=== PATIENT | female | born 1965 | race Caucasian/White ===

== ENCOUNTER → 2017-05-13 | Outpatient (CLI) | payer OTHER, SELFPAY ==
[~2017-05-13] MED LIST: AMOCLA875 PO; BISA5EC PO; Bactrim Ds Tab1 EACH PO; EPIN.3I IM; ESOM20 PO; ETOD200 PO; FAMO20 PO; FEXO180 PO; FLUC150A PO; GABA400 PO; HYDACE5 PO; HYDHCL25 PO; HYDPAM50 PO; IBUHYD PO; LOSA50 PO; LOSARTAN-HCTZ1 EACH PO; MAGCIT300 PO; METCAR500 PO; METPRE4DP PO; MONT10T PO; Norco 5-325 Ta1 EACH PO; OXYC5 PO; PRED20 PO; PROACE100 PO; Pyridium100 MG PO; Tobrex5 ML BOTHEYES; VITAMINS; Zofran Odt4 MG SL; [UNRECOGNIZED DRUG - REMARK] PO
== END ==
LOC: LAB EV 14:48
DX: R50.9 Fever, unspecified (principal)
CPT/HCPCS: 87070

== ENCOUNTER 2017-11-25 05:08 | Emergency (ER) | payer OTHER, SELFPAY ==
[~2017-11-25] VITALS: Ht 160 cm; Wt 117.9 kg
[~2017-11-25 05:08] MED LIST changes: -Bactrim Ds Tab1 EACH PO; -LOSA50 PO; -LOSARTAN-HCTZ1 EACH PO; -Norco 5-325 Ta1 EACH PO; -Pyridium100 MG PO; -Zofran Odt4 MG SL
[2017-11-25] MEDS ORDERED: LOSARTAN-HCTZ1 EACH PO (05:29)
[2017-11-25] MEDS ORDERED: LOSA50 PO (05:29)
[2017-11-25 05:56] LABS: Source, Urine Clean Catch
[2017-11-25 06:09] LABS: Blood, Urine 2+ (Neg); Glucose Qualitative, Urine Neg (Neg); Ketones, Urine Neg (Neg); Leukocyte Esterase, Urine 2+ (Neg); Nitrite, Urine Neg (Neg); Protein, Urine 1+ (Neg); Urobilinogen, Urine NORM (Normal)
[2017-11-25 06:13] LABS: Appearance, Urine Clear (Clear); Bilirubin, Urine 1+ (Neg); Color, Urine Yellow (P-Yellow)
[2017-11-25 06:16] LABS: Squamous Epithelial Cells Many /hpf (Few)
[2017-11-25 06:18] LABS: Bacteria Few /hpf; Red Blood Cells, Urine 0-2 /hpf (0-2); Uric Acid Crystals Few /hpf
[2017-11-25 06:31] LABS: BASOPHILS ABSOLUTE AUTO 0.04 K/mm3 (0.00-0.23); BASOPHILS PERCENT AUTO 0 % (0-2); EOSINOPHILS ABSOLUTE AUTO 0.11 K/mm3 (0.00-0.68); EOSINOPHILS PERCENT AUTO 1 % (0-6); Hematocrit 42.1 % (33.0-51.0); Hemoglobin 13.9 g/dL (11.5-16.0); IMMATURE GRAN ABSOLUTE AUTO 0.02 K/mm3 (0.00-0.10); IMMATURE GRAN PERCENT AUTO 0 % (0-1); LYMPHOCYTES ABSOLUTE AUTO 1.94 K/mm3 (0.84-5.20); LYMPHOCYTES PERCENT AUTO 20 % (21-46); MONOCYTES ABSOLUTE AUTO 0.78 K/mm3 (0.16-1.47); MONOCYTES PERCENT AUTO 8 % (4-13); Mean Corpuscular HGB 29.3 pg (26.0-34.0); Mean Corpuscular Volume 89 fL (80-100); Mean Platelet Volume 10.3 fL (9.1-12.4); NEUTROPHILS ABSOLUTE AUTO 6.68 K/mm3 (1.96-9.15); NEUTROPHILS PERCENT AUTO 70 % (41-73); Platelet Count 254 K/mm3 (150-400); RDW Coefficient Variation 12.7 % (11.7-14.2); RDW Standard Deviation 41.9 fL (35.1-46.3); Red Blood Cell Count 4.74 M/mm3 (3.80-5.20); White Blood Cell Count 9.57 K/mm3 (4.00-11.30)
[2017-11-25 06:40] LABS: Alanine Aminotransfer (ALT/SGP 72 U/L (12-78); Albumin, Blood 3.9 g/dL (3.4-5.0); Albumin/Globulin Ratio 1.1 (0.8-1.8); Alk Phos 88 U/L (50-136); Anion Gap 11 mmol/L (6-16); Aspartate Aminotrans (AST/SGOT 32 U/L (12-37); Bilirubin, Total 0.3 mg/dL (0.1-1.0); Blood Urea Nitrogen 17 mg/dL (8-24); Bun/Creatinine Ratio 27.6 (12.0-20.0); CO2, Blood 26 mmol/L (21-32); Calcium, Blood 9.2 mg/dL (8.5-10.1); Chloride, Blood 102 mmol/L (98-108); Creatinine, Blood 0.62 mg/dL (0.40-1.00); Globulin, Blood 3.6 g/dL (2.2-4.0); Glomerular Filtration Rate >60 (60-); Glucose, Blood 128 mg/dL (70-99); Potassium, Blood 3.9 mmol/L (3.5-5.5); Sodium, Blood 139 mmol/L (136-145); Total Protein, Blood 7.5 g/dL (6.4-8.2)
[2017-11-25] MEDS ORDERED: Zofran Odt4 MG SL (06:51)
[2017-11-25] MEDS ORDERED: Pyridium100 MG PO (06:51)
[2017-11-25] MEDS ORDERED: Norco 5-325 Ta1 EACH PO (06:51)
[2017-11-25] MEDS ORDERED: Bactrim Ds Tab1 EACH PO (06:57)
== END 2017-11-25 06:55 | disposition home or self-care (01) ==
LOC: ER 05:08
PROVIDERS: Emergency Medicine
DX: N39.0 Urinary tract infection, site not specified (principal); Z91.040 Latex allergy status; Z91.011 Allergy to milk products; Z79.899 Other long term (current) drug therapy; J45.909 Unspecified asthma, uncomplicated
CPT/HCPCS: 36415; 80053; 81001; 85025; 87086; 96372; 99283; J1885

== ENCOUNTER 2019-03-19 09:00 | Emergency (ER) | payer OTHER ==
[~2019-03-19] VITALS: Ht 160 cm; Wt 93.4 kg
[~2019-03-19 09:00] MED LIST changes: +Bactrim Ds Tab1 EACH PO; +LOSA50 PO; +LOSARTAN-HCTZ1 EACH PO; +Norco 5-325 Ta1 EACH PO; +Pyridium100 MG PO; +Zofran Odt4 MG SL
[2019-03-19 10:34] LABS: BASOPHILS ABSOLUTE AUTO 0.02 K/mm3 (0.00-0.23); BASOPHILS PERCENT AUTO 0 % (0-2); EOSINOPHILS ABSOLUTE AUTO 0.04 K/mm3 (0.00-0.68); EOSINOPHILS PERCENT AUTO 0 % (0-6); Hematocrit 41.9 % (33.0-51.0); Hemoglobin 13.6 g/dL (11.5-16.0); IMMATURE GRAN ABSOLUTE AUTO 0.03 K/mm3 (0.00-0.10); IMMATURE GRAN PERCENT AUTO 0 % (0-1); LYMPHOCYTES ABSOLUTE AUTO 1.65 K/mm3 (0.84-5.20); LYMPHOCYTES PERCENT AUTO 18 % (21-46); MONOCYTES ABSOLUTE AUTO 0.81 K/mm3 (0.16-1.47); MONOCYTES PERCENT AUTO 9 % (4-13); Mean Corpuscular HGB 28.8 pg (26.0-34.0); Mean Corpuscular HGB Conc 32.5 g/dL (31.5-36.5); Mean Corpuscular Volume 89 fL (80-100); Mean Platelet Volume 9.9 fL (9.1-12.4); NEUTROPHILS ABSOLUTE AUTO 6.89 K/mm3 (1.96-9.15); NEUTROPHILS PERCENT AUTO 73 % (41-73); Platelet Count 280 K/mm3 (150-400); RDW Standard Deviation 42.2 fL (35.1-46.3); Red Blood Cell Count 4.72 M/mm3 (3.80-5.20); White Blood Cell Count 9.44 K/mm3 (4.00-11.30)
[2019-03-19 10:42] LABS: Alanine Aminotransfer (ALT/SGP 102 U/L (12-78); Albumin, Blood 3.7 g/dL (3.4-5.0); Albumin/Globulin Ratio 0.8 (0.8-1.8); Alk Phos 127 U/L (50-136); Anion Gap 5 mmol/L (6-16); Aspartate Aminotrans (AST/SGOT 48 U/L (12-37); Bilirubin, Total 0.3 mg/dL (0.1-1.0); Blood Urea Nitrogen 21 mg/dL (8-24); Bun/Creatinine Ratio 36.1 (12.0-20.0); CO2, Blood 28 mmol/L (21-32); Calcium, Blood 9.3 mg/dL (8.5-10.1); Chloride, Blood 108 mmol/L (98-108); Creatinine, Blood 0.58 mg/dL (0.40-1.00); Globulin, Blood 4.5 g/dL (2.2-4.0); Glomerular Filtration Rate >60 (60-); Glucose, Blood 105 mg/dL (70-99); Potassium, Blood 4.1 mmol/L (3.5-5.5); Sodium, Blood 141 mmol/L (136-145); Total Protein, Blood 8.2 g/dL (6.4-8.2)
[2019-03-19 10:45] LABS: Source, Urine Clean Catch
[2019-03-19 10:50] LABS: Bilirubin, Urine Neg (Neg); Blood, Urine 1+ (Neg); Glucose Qualitative, Urine Neg (Neg); Ketones, Urine 1+ (Neg); Leukocyte Esterase, Urine Neg (Neg); Nitrite, Urine Neg (Neg); Protein, Urine Neg (Neg); Urobilinogen, Urine NORM (Normal)
[2019-03-19 10:58] LABS: Appearance, Urine Clear (Clear); Bacteria Not Seen /hpf; Color, Urine Yellow (P-Yellow); Red Blood Cells, Urine 0-2 /hpf (0-2); Squamous Epithelial Cells Rare /hpf (Few); White Blood Cells, Urine Not Seen /hpf (0-5)
[2019-03-19 10:59] LABS: Transitional Epithelial Cells Few /hpf (0-Rare)
[2019-03-19] MEDS ORDERED: Cipro500 MG PO (13:07)
[2019-03-19] MEDS ORDERED: Diflucan100 MG PO (13:07)
[2019-03-19] MEDS ORDERED: Flagyl500 MG PO (13:07)
== END 2019-03-19 13:39 | disposition home or self-care (01) ==
LOC: ER 09:00
PROVIDERS: Emergency Medicine
DX: K57.32 Diverticulitis of large intestine without perforation or abscess without bleeding (principal); J45.909 Unspecified asthma, uncomplicated; Z91.040 Latex allergy status; Z91.011 Allergy to milk products; Z91.048 Other nonmedicinal substance allergy status
CPT/HCPCS: 36415; 74177; 80053; 81001; 83690; 84484; 85025; 93005; 93010; 99284-25; Q9967

== ENCOUNTER 2019-03-22 06:34 | Emergency (ER) | payer OTHER ==
[~2019-03-22] VITALS: Ht 160 cm; Wt 92.1 kg
[~2019-03-22 06:34] MED LIST changes: +Cipro500 MG PO; +Diflucan100 MG PO; +Flagyl500 MG PO
[2019-03-22 07:54] LABS: BASOPHILS ABSOLUTE AUTO 0.02 K/mm3 (0.00-0.23); BASOPHILS PERCENT AUTO 0 % (0-2); EOSINOPHILS ABSOLUTE AUTO 0.07 K/mm3 (0.00-0.68); EOSINOPHILS PERCENT AUTO 1 % (0-6); IMMATURE GRAN ABSOLUTE AUTO 0.03 K/mm3 (0.00-0.10); IMMATURE GRAN PERCENT AUTO 0 % (0-1); LYMPHOCYTES ABSOLUTE AUTO 1.56 K/mm3 (0.84-5.20); LYMPHOCYTES PERCENT AUTO 18 % (21-46); MONOCYTES ABSOLUTE AUTO 0.83 K/mm3 (0.16-1.47); MONOCYTES PERCENT AUTO 10 % (4-13); Mean Corpuscular HGB 28.6 pg (26.0-34.0); Mean Corpuscular HGB Conc 32.5 g/dL (31.5-36.5); Mean Corpuscular Volume 88 fL (80-100); Mean Platelet Volume 9.8 fL (9.1-12.4); NEUTROPHILS ABSOLUTE AUTO 6.18 K/mm3 (1.96-9.15); NEUTROPHILS PERCENT AUTO 71 % (41-73); Platelet Count 297 K/mm3 (150-400); RDW Coefficient Variation 12.5 % (11.7-14.2); RDW Standard Deviation 40.8 fL (35.1-46.3); Red Blood Cell Count 4.54 M/mm3 (3.80-5.20); White Blood Cell Count 8.69 K/mm3 (4.00-11.30)
[2019-03-22 08:01] LABS: Anion Gap 9 mmol/L (6-16); Blood Urea Nitrogen 20 mg/dL (8-24); Bun/Creatinine Ratio 31.9 (12.0-20.0); CO2, Blood 25 mmol/L (21-32); Calcium, Blood 9.4 mg/dL (8.5-10.1); Chloride, Blood 104 mmol/L (98-108); Creatinine, Blood 0.63 mg/dL (0.40-1.00); Glomerular Filtration Rate >60 (60-); Glucose, Blood 95 mg/dL (70-99); Potassium, Blood 3.9 mmol/L (3.5-5.5); Sodium, Blood 138 mmol/L (136-145)
== END 2019-03-22 08:28 | disposition home or self-care (01) ==
LOC: ER 06:34
PROVIDERS: Emergency Medicine
DX: K57.32 Diverticulitis of large intestine without perforation or abscess without bleeding (principal); K52.9 Noninfective gastroenteritis and colitis, unspecified; J45.909 Unspecified asthma, uncomplicated; Z91.040 Latex allergy status; Z91.011 Allergy to milk products; Z79.899 Other long term (current) drug therapy
CPT/HCPCS: 36415; 80048; 85025; 99283

== ENCOUNTER 2019-07-13 19:42 | Inpatient (IN) | payer OTHER ==
[~2019-07-13] VITALS: Ht 160 cm; Wt 92.0 kg
[~2019-07-13 19:42] MED LIST changes: +Augmentin 875-1 EACH PO; -ESOM20 PO; -ETOD200 PO; -GABA400 PO; -METCAR500 PO; +ONDA4ODT MM
[2019-07-13 20:22] LABS: BASOPHILS ABSOLUTE AUTO 0.04 K/mm3 (0.00-0.23); BASOPHILS PERCENT AUTO 0 % (0-2); EOSINOPHILS ABSOLUTE AUTO 0.05 K/mm3 (0.00-0.68); EOSINOPHILS PERCENT AUTO 0 % (0-6); Hematocrit 41.9 % (33.0-51.0); Hemoglobin 13.5 g/dL (11.5-16.0); IMMATURE GRAN ABSOLUTE AUTO 0.05 K/mm3 (0.00-0.10); IMMATURE GRAN PERCENT AUTO 0 % (0-1); LYMPHOCYTES ABSOLUTE AUTO 1.43 K/mm3 (0.84-5.20); LYMPHOCYTES PERCENT AUTO 10 % (21-46); MONOCYTES ABSOLUTE AUTO 0.68 K/mm3 (0.16-1.47); MONOCYTES PERCENT AUTO 5 % (4-13); Mean Corpuscular HGB 28.2 pg (26.0-34.0); Mean Corpuscular HGB Conc 32.2 g/dL (31.5-36.5); Mean Corpuscular Volume 88 fL (80-100); Mean Platelet Volume 10.4 fL (9.1-12.4); NEUTROPHILS ABSOLUTE AUTO 12.64 K/mm3 (1.96-9.15); NEUTROPHILS PERCENT AUTO 85 % (41-73); Platelet Count 268 K/mm3 (150-400); RDW Coefficient Variation 13.8 % (11.7-14.2); RDW Standard Deviation 44.3 fL (35.1-46.3); Red Blood Cell Count 4.79 M/mm3 (3.80-5.20); White Blood Cell Count 14.89 K/mm3 (4.00-11.30)
[2019-07-13 20:45] LABS: Alanine Aminotransfer (ALT/SGP 59 U/L (12-78); Albumin, Blood 4.1 g/dL (3.4-5.0); Albumin/Globulin Ratio 1.1 (0.8-1.8); Alk Phos 93 U/L (50-136); Anion Gap 5 mmol/L (6-16); Aspartate Aminotrans (AST/SGOT 29 U/L (12-37); Bilirubin, Total 0.3 mg/dL (0.1-1.0); Blood Urea Nitrogen 25 mg/dL (8-24); Bun/Creatinine Ratio 36.9 (12.0-20.0); CO2, Blood 26 mmol/L (21-32); Calcium, Blood 9.1 mg/dL (8.5-10.1); Chloride, Blood 107 mmol/L (98-108); Creatinine, Blood 0.68 mg/dL (0.40-1.00); Globulin, Blood 3.6 g/dL (2.2-4.0); Glomerular Filtration Rate >60 (60-); Glucose, Blood 131 mg/dL (70-99); Potassium, Blood 3.6 mmol/L (3.5-5.5); Sodium, Blood 138 mmol/L (136-145); Total Protein, Blood 7.7 g/dL (6.4-8.2)
[2019-07-13] MEDS ORDERED: GABA800 PO (21:59)
[2019-07-13] MEDS ORDERED: Robaxin750 MG PO (22:00)
[2019-07-13] MEDS ORDERED: ETOD400 PO (22:00)
[2019-07-13] MEDS ORDERED: ALBU2.5V5 NEB (22:09)
[2019-07-13 22:20] LABS: Source, Urine Clean Catch
[2019-07-13 22:23] LABS: Bilirubin, Urine Neg (Neg); Blood, Urine 1+ (Neg); Glucose Qualitative, Urine Neg (Neg); Ketones, Urine 1+ (Neg); Leukocyte Esterase, Urine Neg (Neg); Nitrite, Urine Neg (Neg); Protein, Urine Neg (Neg); Urobilinogen, Urine NORM (Normal)
[2019-07-13 22:25] LABS: Appearance, Urine Clear (Clear); Color, Urine Yellow (P-Yellow)
[2019-07-13] MEDS ORDERED: Nexium40 MG PO (22:25)
[2019-07-13] MEDS ORDERED: ALBU90OI INH (22:26)
[2019-07-13] MEDS ORDERED: NIAC500 PO (22:27)
[2019-07-13] MEDS ORDERED: CRANBERRY500 M1 PO (22:28)
[2019-07-13] MEDS ORDERED: BENADRYL25 MG PO (22:29)
[2019-07-13 22:38] LABS: Bacteria Not Seen /hpf; Red Blood Cells, Urine 0-2 /hpf (0-2); Squamous Epithelial Cells Not Seen /hpf (Few); White Blood Cells, Urine Not Seen /hpf (0-5)
--- NOTE | 2019-07-14 01:43 | NUR ---
CPAP/BIPAP PT HAD REPORTED SHE WEARS BIPAP AT HOME, HOWEVER WHEN ASKED IF SHE WANTED BIPAP SET UP FOR HER HERE SHE DECLINED. PT SAID SHE DOESN'T THINK SHE NEEDS IT.
[2019-07-14 03:46] LABS: BASOPHILS ABSOLUTE AUTO 0.02 K/mm3 (0.00-0.23); BASOPHILS PERCENT AUTO 0 % (0-2); EOSINOPHILS PERCENT AUTO 0 % (0-6); Hematocrit 38.6 % (33.0-51.0); Hemoglobin 12.4 g/dL (11.5-16.0); IMMATURE GRAN ABSOLUTE AUTO 0.06 K/mm3 (0.00-0.10); IMMATURE GRAN PERCENT AUTO 0 % (0-1); LYMPHOCYTES ABSOLUTE AUTO 0.75 K/mm3 (0.84-5.20); LYMPHOCYTES PERCENT AUTO 5 % (21-46); MONOCYTES ABSOLUTE AUTO 0.73 K/mm3 (0.16-1.47); MONOCYTES PERCENT AUTO 5 % (4-13); Mean Corpuscular HGB 28.2 pg (26.0-34.0); Mean Corpuscular HGB Conc 32.1 g/dL (31.5-36.5); Mean Corpuscular Volume 88 fL (80-100); NEUTROPHILS ABSOLUTE AUTO 13.44 K/mm3 (1.96-9.15); NEUTROPHILS PERCENT AUTO 90 % (41-73); Platelet Count 228 K/mm3 (150-400); RDW Coefficient Variation 14.1 % (11.7-14.2); RDW Standard Deviation 45.2 fL (35.1-46.3)
[2019-07-14 04:04] LABS: Alanine Aminotransfer (ALT/SGP 51 U/L (12-78); Albumin, Blood 3.7 g/dL (3.4-5.0); Albumin/Globulin Ratio 1.1 (0.8-1.8); Alk Phos 73 U/L (50-136); Anion Gap 6 mmol/L (6-16); Aspartate Aminotrans (AST/SGOT 18 U/L (12-37); Bilirubin, Total 0.5 mg/dL (0.1-1.0); Blood Urea Nitrogen 18 mg/dL (8-24); Bun/Creatinine Ratio 30.1 (12.0-20.0); CO2, Blood 28 mmol/L (21-32); Calcium, Blood 8.3 mg/dL (8.5-10.1); Chloride, Blood 106 mmol/L (98-108); Globulin, Blood 3.3 g/dL (2.2-4.0); Glomerular Filtration Rate >60 (60-); Glucose, Blood 146 mg/dL (70-99); Potassium, Blood 3.7 mmol/L (3.5-5.5); Sodium, Blood 140 mmol/L (136-145)
--- NOTE | 2019-07-14 04:27 | NUR ---
SHIFT SUMMARY PT IS A/O X4 AND IS IND. IN ROOM WITH OCC. STANDBY ASSIST FOR IV LINES ETC. PAIN MANAGED WITH IV DILAUDED PER ORDERS. PT HAS HAD SOME NAUSEA AND WAS MEDICATED WITH ZOFRAN. PT HAS BEEN NPO PER ORDERS. IV FLUIDS HAVE BEEN INFUSING PER ORDERS. NO ACUTE CHANGES. CONSULT TO DR. PACHECO WAS CALLED DURING THIS SHIFT.
--- NOTE | 2019-07-14 07:11 | NUR ---
ASSUMED PATIENT CARE. PATIENT RESTING COMFORTABLY IN BED, CONVERSING WITH NURSING STAFF. NO SIGNS OF ACUTE DISTRESS, WCTM.
--- NOTE | 2019-07-14 16:54 | NUR ---
07/14/19 1652 Mod[place] Hussein TINOCO CATH PLACED PER Caryl PIERRE
--- NOTE | 2019-07-14 17:30 | NUR ---
NO ACUTE EVENTS THIS SHIFT. PATIENT EVALUATED BY DR. PACHECO, TAKEN TO OR EARLY THIS AFTERNOON FOR SURGICAL INTERVENTION FOR PERFORATED SIGMOID COLON. PATIENT'S PAIN MANAGED BY DILAUDID AND TYLENOL WITH ZOFRAN FOR NAUSEA. PATIENT COMPLAINED OF CONSISTENT SEVERE ABD PAIN AND TENDERNESS. PATIENT IS TO HAVE COLOSTOMY CREATED.
--- NOTE | 2019-07-14 19:08 | NUR ---
RELINQUISHED PATIENT CARE.
--- NOTE | 2019-07-14 23:30 | NUR ---
PCU ARRIVAL PT BROUGHT TO PCU-09 BY BED FROM PACU @ APPROX 1999. PT A&O X4. VSS. SHANNAN DRAIN TO ABD LLQ. NEWLY PLACED COLOSTOMY TO LLQ. TINOCO CATH PATENT & DRAINING. EPIDURAL CATH INFUSING FENTANYL PER EMAR. PT C/O "100 OUT OF 10" PAIN "EVERYWHERE" & ASKING "WHEN IS THE MEDICINE GOING TO WORK? WHEN'S IT GOING TO WORK? I HURT. I HURT EVERYWHERE." PT MOANING IN RM. CALL TO MD BURTON INFORMING OF EPIDURAL FENTANYL TITRATED UP TO NEAR MAX DOSE, INFUSING @ 19 MLS/HR W/ NO PAIN CONTROL REPORTED BY PT. MD BURTON INFORMS HE WILL DISCUSS CASE W/ MD PACHECO & RE-EVALUATE PAIN MANAGEMENT.
--- NOTE | 2019-07-15 02:00 | NUR ---
PAIN MANAGEMENT MD BURTON TO PT BEDSIDE @ APPROX 0000 D/T PT LACK OF PAIN MANAGEMENT POST PROCEDURE. W/ ASSESSMENT OF EPIDURAL & ADMINISTRATION OF LIDOCAINE VIA EPIDURAL. PT QUICKLY REPORTING PAIN RELIEF FROM A 10/10 DOWN TO A 2/10. W/ INSTRUCTION TO MONITOR BP Q3 MIN FOR NEXT 15 MIN. PT's BP THEN TRENDING DOWN W/ DECREASE TO LOW 69/40. MD BURTON NOTIFIED & RETURNED TO PT RM W/ IV EPHEDRINE & IV PHENYLEPHRINE & INSTRUCTIONS TO BOLUS 1L NS. PT BP IMPROVED, REVIEW VS. PT BP NOW STABILIZED.
--- NOTE | 2019-07-15 02:30 | NUR ---
PAIN RETURN / MD NOTIFIED PT REPORTS PAIN RETURNING, INCREASING FROM A 2/10 TO A 5-6/10. MD BURTON NOTIFIED W/ MD ORDER TO TURN OFF EPIDURAL FENTANYL AND SWITCH TO OUTSOLE LEVELER IV FENTANYL.
--- NOTE | 2019-07-15 03:47 | NUR ---
EPIDURAL CATH REMOVED MD BURTON AT PT BEDSIDE THIS AM TO REMOVE EPIDURAL CATH @ APPROX 0300. EPIDURAL CATH REMOVAL WNL. PT SWITCHED FROM EPIDURAL FENTANYL TO LARD BLEACHER IV FENTANYL.
[2019-07-15 03:52] LABS: BASOPHILS ABSOLUTE AUTO 0.01 K/mm3 (0.00-0.23); BASOPHILS PERCENT AUTO 0 % (0-2); EOSINOPHILS PERCENT AUTO 0 % (0-6); Hematocrit 27.6 % (33.0-51.0); Hemoglobin 8.7 g/dL (11.5-16.0); IMMATURE GRAN ABSOLUTE AUTO 0.05 K/mm3 (0.00-0.10); IMMATURE GRAN PERCENT AUTO 0 % (0-1); LYMPHOCYTES ABSOLUTE AUTO 0.57 K/mm3 (0.84-5.20); LYMPHOCYTES PERCENT AUTO 5 % (21-46); MONOCYTES ABSOLUTE AUTO 0.65 K/mm3 (0.16-1.47); MONOCYTES PERCENT AUTO 5 % (4-13); Mean Corpuscular HGB 28.3 pg (26.0-34.0); Mean Corpuscular HGB Conc 31.5 g/dL (31.5-36.5); Mean Corpuscular Volume 90 fL (80-100); Mean Platelet Volume 10.7 fL (9.1-12.4); NEUTROPHILS ABSOLUTE AUTO 10.73 K/mm3 (1.96-9.15); NEUTROPHILS PERCENT AUTO 89 % (41-73); Platelet Count 242 K/mm3 (150-400); RDW Coefficient Variation 14.3 % (11.7-14.2); RDW Standard Deviation 47.3 fL (35.1-46.3); Red Blood Cell Count 3.07 M/mm3 (3.80-5.20); White Blood Cell Count 12.01 K/mm3 (4.00-11.30)
[2019-07-15 04:16] LABS: Anion Gap 7 mmol/L (6-16); Blood Urea Nitrogen 14 mg/dL (8-24); Bun/Creatinine Ratio 25.9 (12.0-20.0); CO2, Blood 25 mmol/L (21-32); Calcium, Blood 7.6 mg/dL (8.5-10.1); Chloride, Blood 109 mmol/L (98-108); Creatinine, Blood 0.54 mg/dL (0.40-1.00); Glomerular Filtration Rate >60 (60-); Glucose, Blood 150 mg/dL (70-99); Potassium, Blood 3.9 mmol/L (3.5-5.5); Sodium, Blood 141 mmol/L (136-145)
--- NOTE | 2019-07-15 05:48 | NUR ---
UPDATE PT SITTING UP AT EDGE OF BED, REPORTS PAIN 1-04/02 THIS AM W/ SHUTTLER IV FENTANYL. PT C/O ITCHING HOWEVER, REPORTING SHE GETS ITCHY WHEN SHE TAKES MULTIPLE DOSES OF PAIN MEDICINE. PO BENADRYL PROVIDED. PT ALSO REPORTING PATIENT SERVICES COORDINATOR STICKERS IRRITATING SKIN. STICKERS REPLACED W/ CLOTH TELEMETRY STICKERS. WILL CONTINUE TO MONITOR.
--- NOTE | 2019-07-15 07:41 | NUR ---
REPORT GIVEN TO DAY SHIFT RN ASSUMING CARE OF PT.
--- NOTE | 2019-07-15 09:48 | NUR ---
DIFFICULT TO AROUSE PT DIFFICULT TO AROUSE DURING ASSESSMENT. CALLED DR PACHECO. HE ORDERED TO STOP THE BASEL RATE ON THE CAN TOP SETTER. PT SLOWLY WAKING UP. ORIENTED TO SLEF. PULLING LINES. REMOVED HER IV. UNDRESSING HERSELF. REORIENTING BRIEFLY. SHE DRIFTS BACK TO SLEEP EASILY AND BRIEFLY. BED ALARM ON. PT HAS A ROD GREASER SITTING WITH HER UNTIL HER ORIENTATION CLEARS. CONTINUE POT.
--- NOTE | 2019-07-15 10:18 | NUR ---
AWAKE AND ALERT PT AWAKE AND ALERT. ORIENTED TO PERSON, PLACE AND EVENT. REMEMBERS THE POST OP PAIN. FOLLOWING DIRECTIONS. TALKED WITH HER ABOUT THE JUST THE SR. STRATEGIC SOURCING MANAGER BUTTON. NO BASEL RATE ON SAPHIRE PUMP. CONTINUE POT.
--- NOTE | 2019-07-15 12:05 | NUR ---
EPIDURAL WASTE WASTED PT EPIDURAL OF FENTAYL WITH BUCK CHAVEZ. CONTINUE POT.
--- NOTE | 2019-07-15 18:18 | NUR ---
EVENINGNOTE PT UP IN CHAIR AT BEDSIDE. SR. TRANSFERED WITH 1 ASSIST. PT SIPPING ON WATER. NO FLATUS NOTED IN OSTOMY BAG. SHE DID TRY A LITTLE JELLO. NO C/O OF N/V, BLOATING OR CRAMPING. PT USING HER DENTAL LABORATORY WORKER BUTTON APPROPRIATELY. VSS. CONTINUE POT.
--- NOTE | 2019-07-15 20:30 | NUR ---
PT WAS SITTING UP IN CHAIR. ASSISTED BACK TO BED WITH 1 PERSON ASSIST. PT MOVES SLOW DUE TO PAIN. AFTER GETTING BACK TO BED NOTICED THE DRESSING FOR THE SHANNAN VAC WAS SATURATED WITH BLOOD. TOOK DRESSING AND OSTOMY DOWN AND THE BLEEDING HAS STOPPED. CHRISTIAN INTACT AND CLEANSED WITH STERILE WATER. OSTOMY IS BEEFY RED. NO OUTPUT FROM STOMA YET. REPLACED SHANNAN VAC AND OSTOMY APPLIANCE. PT HAS SIGN ARTIST FOR PAIN MANAGEMENT. DROWSY AFTER SHE USES THE SIGN ARTIST. ON CONTINUOUS OXIMETER FOR HIGH RISK PAIN MANAGEMENT. NO REQUESTS, NO SIGN OF DISTRESS.
[2019-07-16 04:08] LABS: BASOPHILS ABSOLUTE AUTO 0.01 K/mm3 (0.00-0.23); BASOPHILS PERCENT AUTO 0 % (0-2); EOSINOPHILS PERCENT AUTO 0 % (0-6); Hematocrit 22.4 % (33.0-51.0); Hemoglobin 6.8 g/dL (11.5-16.0); IMMATURE GRAN ABSOLUTE AUTO 0.03 K/mm3 (0.00-0.10); IMMATURE GRAN PERCENT AUTO 0 % (0-1); LYMPHOCYTES ABSOLUTE AUTO 1.37 K/mm3 (0.84-5.20); LYMPHOCYTES PERCENT AUTO 17 % (21-46); MONOCYTES ABSOLUTE AUTO 0.69 K/mm3 (0.16-1.47); MONOCYTES PERCENT AUTO 9 % (4-13); Mean Corpuscular HGB 28.1 pg (26.0-34.0); Mean Corpuscular HGB Conc 30.4 g/dL (31.5-36.5); Mean Platelet Volume 10.1 fL (9.1-12.4); NEUTROPHILS ABSOLUTE AUTO 5.78 K/mm3 (1.96-9.15); NEUTROPHILS PERCENT AUTO 73 % (41-73); Platelet Count 190 K/mm3 (150-400); RDW Coefficient Variation 14.2 % (11.7-14.2); RDW Standard Deviation 48.5 fL (35.1-46.3); Red Blood Cell Count 2.42 M/mm3 (3.80-5.20); White Blood Cell Count 7.88 K/mm3 (4.00-11.30)
[2019-07-16 04:10] LABS: Mean Corpuscular Volume 93 fL (80-100)
[2019-07-16 04:28] LABS: Alanine Aminotransfer (ALT/SGP 25 U/L (12-78); Albumin, Blood 2.7 g/dL (3.4-5.0); Albumin/Globulin Ratio 0.8 (0.8-1.8); Alk Phos 52 U/L (50-136); Anion Gap 3 mmol/L (6-16); Aspartate Aminotrans (AST/SGOT 16 U/L (12-37); Bilirubin, Total 0.3 mg/dL (0.1-1.0); Blood Urea Nitrogen 11 mg/dL (8-24); Bun/Creatinine Ratio 19.5 (12.0-20.0); CO2, Blood 30 mmol/L (21-32); Calcium, Blood 7.9 mg/dL (8.5-10.1); Chloride, Blood 108 mmol/L (98-108); Creatinine, Blood 0.56 mg/dL (0.40-1.00); Globulin, Blood 3.3 g/dL (2.2-4.0); Glomerular Filtration Rate >60 (60-); Glucose, Blood 104 mg/dL (70-99); Potassium, Blood 3.6 mmol/L (3.5-5.5); Sodium, Blood 141 mmol/L (136-145)
--- NOTE | 2019-07-16 06:37 | NUR ---
SUMMARY PT RESTING IN BED. SAT UP AT SIDE OF BED PART OF THE NIGHT. HAD ONE EPISODE AFTER SHE GOT BACK TO BED FROM CHAIR WHERE HER SHANNAN VAC DRESSING WAS SATURATED WITH BLOOD. AFTER REDRESSING AND REPLACING OSTOMY APPLIANCE, THERE HAS NOT BEEN ANY MORE BLEEDING. VS STABLE. H&H DROPPED THIS AM. CALLED DR. CHINCHILLA WHO ORDERED 1 UNIT OF PRBC'S. PT BEING DRAWN FOR T&C RIGHT NOW. USING FENTANYL INTELLIGENCE OPERATIONS FOR PAIN CONTROL. PT HAS BEEN DROWSY AFTER USING INTELLIGENCE OPERATIONS ALL NIGHT. DOES AROUSE FROM SLEEP EASILY. NO SIGN OF DISTRESS THIS AM. CALL LIGHT IN REACH.
--- NOTE | 2019-07-16 10:39 | NUR ---
DR JUNIOR PACHECO CALLED TO REQUEST A DECREASE IN BUSINESS BROKER BUTTON DOSE. PT IS VERY SLEEPY THIS MORNING. ORDER RECEIVED. CONTINUE POT.
--- NOTE | 2019-07-16 11:37 | NUR ---
note Pt awake and alert. Sr. POWERGLIDE PLACED BY FILOMENA CHAVEZ FOR BLOOD INFUSION. PT TOLERATED WELL. PRBC INFUSING X1 UNIT. PT MORE ALERT AND AWAKE WITH DECREASE IN CUSTOMER SERVICE AND SALES CONSULTANT DOSE. PT TOLERATING SMALL AMOUNTS OF CLEAR LIQUIDS. NO OUTPT FROM OSTOMY SO FAR. ABD SOFT, ROUND. NO CRAMPING OR BLOATING NOTED. PT DENIED NAUSEA AFTER EATING JELLO FOR BREAKFAST. PT HAS DECLINED TO GET OOB THIS MORNING STATING" I'M TOO TIRED.". CONTINUE POT.
--- NOTE | 2019-07-16 12:21 | NUR ---
PRBC PRBC INFUSING THROUGH POWER GLIDE. PT TOLERAING WELL. NO S/S OF TRANSFUSION REACTION NOTED. PT ITCHING, WHICH IS NORMAL FOR HER. SHE REFUSED BENADRYL AT THIS TIME. VSS. CONTINUE POT.
[2019-07-16 17:32] LABS: Hematocrit 24.2 % (33.0-51.0); Hemoglobin 7.5 g/dL (11.5-16.0)
--- NOTE | 2019-07-16 19:53 | NUR ---
1800- recvd report from internet marketing internkathy Gama, assumed care of pt, changed SHANNAN dressing 1949- report given to KATHY Escobar
[2019-07-17 04:32] LABS: BASOPHILS ABSOLUTE AUTO 0.03 K/mm3 (0.00-0.23); BASOPHILS PERCENT AUTO 0 % (0-2); EOSINOPHILS ABSOLUTE AUTO 0.03 K/mm3 (0.00-0.68); EOSINOPHILS PERCENT AUTO 0 % (0-6); Hematocrit 23.2 % (33.0-51.0); Hemoglobin 7.1 g/dL (11.5-16.0); IMMATURE GRAN ABSOLUTE AUTO 0.03 K/mm3 (0.00-0.10); IMMATURE GRAN PERCENT AUTO 0 % (0-1); LYMPHOCYTES ABSOLUTE AUTO 1.57 K/mm3 (0.84-5.20); LYMPHOCYTES PERCENT AUTO 22 % (21-46); MONOCYTES ABSOLUTE AUTO 0.62 K/mm3 (0.16-1.47); MONOCYTES PERCENT AUTO 9 % (4-13); Mean Corpuscular HGB 28.1 pg (26.0-34.0); Mean Corpuscular HGB Conc 30.6 g/dL (31.5-36.5); Mean Corpuscular Volume 92 fL (80-100); Mean Platelet Volume 10.2 fL (9.1-12.4); NEUTROPHILS ABSOLUTE AUTO 4.91 K/mm3 (1.96-9.15); NEUTROPHILS PERCENT AUTO 68 % (41-73); Platelet Count 174 K/mm3 (150-400); RDW Coefficient Variation 14.3 % (11.7-14.2); Red Blood Cell Count 2.53 M/mm3 (3.80-5.20); White Blood Cell Count 7.19 K/mm3 (4.00-11.30)
[2019-07-17 04:49] LABS: Anion Gap 4 mmol/L (6-16); Blood Urea Nitrogen 7 mg/dL (8-24); CO2, Blood 31 mmol/L (21-32); Chloride, Blood 106 mmol/L (98-108); Creatinine, Blood 0.44 mg/dL (0.40-1.00); Glomerular Filtration Rate >60 (60-); Glucose, Blood 102 mg/dL (70-99); Potassium, Blood 3.2 mmol/L (3.5-5.5); Sodium, Blood 141 mmol/L (136-145)
--- NOTE | 2019-07-17 05:28 | NUR ---
SHIFT SUMMARY LYING IN HIGH FOWLERS WITH EYES CLOSED. HAS RESTED WELL THIS SHIFT. MIDLINE SHANNAN WITH ABD UNDERNEATH IS PATENT, NO LEAKING OR SHADOWING NOTED. NO OUTPUT IN STOMA THIS SHIFT. TAKING SMALL SIPS OF WATER, NO C/O N/V. FENTANYL LINING CLOSER PUMP DEMAND ONLY, 2MCG WITH LOCKOUT OF 8MIN INFUSING PER PROGRAM ENTERED AND VERIFIED BY NURSING. AM LABS DRAWN FOR LEFT UPPER ARM POWERGLIDE WITH LITTLE ISSUE. DENEIS FURTHER NEEDS OR WANTS AT THIS TIME. SAFETY MEASURES IN PLACE. WILL CONTINUE TO MONITOR AND GIVE HAND OFF TO ONCOMING SHIFT USING SBAR DURING BEDSIDE REPORT.
--- NOTE | 2019-07-17 08:07 | NUR ---
YYOOB TO CHAIR, TOLERATED FAIRLY WELL, IS GIVEN W/ INSTRUCTIONS, REPORTS TOLERATING CLEAR LIQUIDS WELL SO FAR.
--- NOTE | 2019-07-17 18:22 | NUR ---
OOB TO CHAIR MOST OF THE DAY, AMBULATING TO THE BATHROOM INDEPENDENTLY, DENIES ANY NAUSEA, TOLERATING SMALL AMOUNTS OF CLEAR LIQUIDS FAIRLY WELL, REPORTS HAVING ADEQUATE PAIN CONTROL WITH 2 NORCO AND BENADRYL (FOR ITCHING), NO OUTPUT NOTED IN OSTOMY APPLIANCE, CONT. TO HAVE SCANT AMOUNT OF SEROUSANGUINOUS DRAINAGE, DENIES ANY BLOATING CONTINUES TO USE IS INSTRUCTED, NO ACUTE CHANGES THIS SHIFT.
[2019-07-18 04:35] LABS: BASOPHILS ABSOLUTE AUTO 0.03 K/mm3 (0.00-0.23); BASOPHILS PERCENT AUTO 1 % (0-2); EOSINOPHILS ABSOLUTE AUTO 0.12 K/mm3 (0.00-0.68); EOSINOPHILS PERCENT AUTO 2 % (0-6); Hematocrit 24.8 % (33.0-51.0); Hemoglobin 7.8 g/dL (11.5-16.0); IMMATURE GRAN ABSOLUTE AUTO 0.03 K/mm3 (0.00-0.10); IMMATURE GRAN PERCENT AUTO 1 % (0-1); LYMPHOCYTES ABSOLUTE AUTO 2.03 K/mm3 (0.84-5.20); LYMPHOCYTES PERCENT AUTO 31 % (21-46); MONOCYTES ABSOLUTE AUTO 0.64 K/mm3 (0.16-1.47); MONOCYTES PERCENT AUTO 10 % (4-13); Mean Corpuscular HGB 28.6 pg (26.0-34.0); Mean Corpuscular HGB Conc 31.5 g/dL (31.5-36.5); Mean Corpuscular Volume 91 fL (80-100); Mean Platelet Volume 10.1 fL (9.1-12.4); NEUTROPHILS ABSOLUTE AUTO 3.81 K/mm3 (1.96-9.15); NEUTROPHILS PERCENT AUTO 57 % (41-73); Platelet Count 211 K/mm3 (150-400); RDW Coefficient Variation 13.9 % (11.7-14.2); Red Blood Cell Count 2.73 M/mm3 (3.80-5.20); White Blood Cell Count 6.66 K/mm3 (4.00-11.30)
[2019-07-18 04:57] LABS: Alanine Aminotransfer (ALT/SGP 42 U/L (12-78); Albumin, Blood 2.6 g/dL (3.4-5.0); Albumin/Globulin Ratio 0.8 (0.8-1.8); Alk Phos 99 U/L (50-136); Anion Gap 4 mmol/L (6-16); Aspartate Aminotrans (AST/SGOT 32 U/L (12-37); Bilirubin, Total 0.6 mg/dL (0.1-1.0); Blood Urea Nitrogen 6 mg/dL (8-24); Bun/Creatinine Ratio 10.9 (12.0-20.0); CO2, Blood 34 mmol/L (21-32); Calcium, Blood 8.1 mg/dL (8.5-10.1); Chloride, Blood 105 mmol/L (98-108); Creatinine, Blood 0.55 mg/dL (0.40-1.00); Globulin, Blood 3.4 g/dL (2.2-4.0); Glomerular Filtration Rate >60 (60-); Glucose, Blood 100 mg/dL (70-99); Sodium, Blood 143 mmol/L (136-145)
--- NOTE | 2019-07-18 06:14 | NUR ---
SHIFT SUMMARY LYING IN SEMI FOWLERS WITH EYES CLOSED. HAS RESTED WELL THIS SHIFT. MIDLINE SHANNAN WITH ABD UNDERNEATH IS PATENT, NO LEAKING OR SHADOWING NOTED. NO OUTPUT IN STOMA THIS SHIFT. ABLE TO AMBUATE IN ROOM TO BATHROOM FOR BLADDER NEEDS. DRINKING CLEAR LIQUID DIET PER MD ORDERS, NO C/O N/V. AM LABS DRAWN FOR LEFT UPPER ARM POWERGLIDE WITH LITTLE ISSUE. DENIES FURTHER NEEDS OR WANTS AT THIS TIME. SAFETY MEASURES IN PLACE. WILL CONTINUE TO MONITOR AND GIVE HAND OFF TO ONCOMING SHIFT USING SBAR DURING BEDSIDE REPORT.
--- NOTE | 2019-07-18 07:00 | NUR ---
pt in the bathroom
--- NOTE | 2019-07-18 08:23 | NUR ---
meds given for pain 4-06/30 with 1 benadryl pt stated that they have been helping no nausea with breafast just eating slowly
--- NOTE | 2019-07-18 12:21 | NUR ---
dr ochoa by to see pt tele d/c'd
--- NOTE | 2019-07-18 13:39 | NUR ---
pt passed gas in the ostomy twice also reporting pain to her r upper arm kpad placed
--- NOTE | 2019-07-18 14:48 | NUR ---
DIET ADV TO FULL LIQ DIET PT VISITING WITH STAFF THAT IS FAMILY MEMBER STATED SHE HAS PASSED SOME MORE GAS
--- NOTE | 2019-07-18 16:27 | NUR ---
pt finished shower pt stated pain is about 6/10 meds given
--- NOTE | 2019-07-18 16:54 | NUR ---
ASSUMED PATIENT CARE. PATIENT RESTING COMFORTABLY IN BED, CONVERSING WITH NURSING STAFF, NO SIGNS OF ACUTE DISTRESS, WCTM.
--- NOTE | 2019-07-18 19:20 | NUR ---
RELINQUISHED PATIENT CARE.
--- NOTE | 2019-07-19 04:41 | NUR ---
SHIFT SUMMARY: BHUPENDRA IS A&OX4. SHE IS POD5 FOR A SIGMOID COLECTOMY WITH COLOSTOMY. SHE IS TOLERATING FULL LIQUIDS WELL. SHE STATES THAT SHE HAS BEEN PASSING GAS. OSTOMY WITH SCANT SS OUTPUT. SHE IS A STANDBY ASSIST TO THE BATHROOM. HER LEVEL OF ASSISTANCE INCREASED SLIGHTLY DURING THE NIGHT DUE TO INCREASED PAIN WHICH SHE ATTRIBUTED TO AN OVERLY FULL BLADDER. SHE WAS ABLE TO EMPTY HER BLADDER OVER SEVERAL VOIDS AND REPORTS RELIEF AT THIS TIME. NO STOOL THROUGH OSTOMY YET. SHANNAN AND OSTOMY APPLIANCE CHANGED AT BEGINNING OF SHIFT. SHE IS ABLE TO MAKE HER NEEDS KNOWN. SHE IS LYING IN BED WITH HER CALL LIGHT IN REACH. WILL REPORT TO DAY SHIFT RN.
[2019-07-19 10:36] LABS: BASOPHILS ABSOLUTE AUTO 0.04 K/mm3 (0.00-0.23); BASOPHILS PERCENT AUTO 1 % (0-2); EOSINOPHILS ABSOLUTE AUTO 0.12 K/mm3 (0.00-0.68); EOSINOPHILS PERCENT AUTO 2 % (0-6); Hematocrit 27.6 % (33.0-51.0); Hemoglobin 8.7 g/dL (11.5-16.0); IMMATURE GRAN ABSOLUTE AUTO 0.05 K/mm3 (0.00-0.10); IMMATURE GRAN PERCENT AUTO 1 % (0-1); LYMPHOCYTES ABSOLUTE AUTO 1.36 K/mm3 (0.84-5.20); LYMPHOCYTES PERCENT AUTO 23 % (21-46); MONOCYTES PERCENT AUTO 10 % (4-13); Mean Corpuscular HGB 28.3 pg (26.0-34.0); Mean Corpuscular HGB Conc 31.5 g/dL (31.5-36.5); Mean Corpuscular Volume 90 fL (80-100); Mean Platelet Volume 9.9 fL (9.1-12.4); NEUTROPHILS ABSOLUTE AUTO 3.72 K/mm3 (1.96-9.15); NEUTROPHILS PERCENT AUTO 63 % (41-73); NRBC ABSOLUTE 0.02 K/mm3 (0.00-0.02); NRBC Auto 0.3 /100 WBC (0.0-0.2); Platelet Count 261 K/mm3 (150-400); RDW Coefficient Variation 13.9 % (11.7-14.2); RDW Standard Deviation 44.9 fL (35.1-46.3); Red Blood Cell Count 3.07 M/mm3 (3.80-5.20); White Blood Cell Count 5.89 K/mm3 (4.00-11.30)
[2019-07-19 10:59] LABS: Anion Gap 5 mmol/L (6-16); Blood Urea Nitrogen 5 mg/dL (8-24); CO2, Blood 33 mmol/L (21-32); Calcium, Blood 8.7 mg/dL (8.5-10.1); Chloride, Blood 103 mmol/L (98-108); Creatinine, Blood 0.55 mg/dL (0.40-1.00); Glomerular Filtration Rate >60 (60-); Glucose, Blood 116 mg/dL (70-99); Potassium, Blood 2.9 mmol/L (3.5-5.5); Sodium, Blood 141 mmol/L (136-145)
--- NOTE | 2019-07-19 18:38 | NUR ---
SHIFT SUMMARY PT A/O X4, VSS, POD 5 SIG COL W/ OSTOMY, SHANNAN IN PLACE WNL CDI. PASSING FLATUS, SS FLUID. AMBULATES INDEPENDANTLY IN ROOM AND [place], VOIDING WELL, TOLERATING PO FULL LIQUID DIET. PAIN MANAGED W/ 10 MG NORCO Q4; BENADRYL GIVEN WITH PAIN MEDS. PICC ANTOLIN FLUSHES WELL, INFUSING ABX PER EMAR. WILL REPORT TO ONCOMING NOC RN.
[2019-07-20 05:04] LABS: BASOPHILS ABSOLUTE AUTO 0.02 K/mm3 (0.00-0.23); BASOPHILS PERCENT AUTO 0 % (0-2); EOSINOPHILS ABSOLUTE AUTO 0.15 K/mm3 (0.00-0.68); EOSINOPHILS PERCENT AUTO 3 % (0-6); Hematocrit 28.6 % (33.0-51.0); Hemoglobin 8.7 g/dL (11.5-16.0); IMMATURE GRAN ABSOLUTE AUTO 0.07 K/mm3 (0.00-0.10); IMMATURE GRAN PERCENT AUTO 1 % (0-1); LYMPHOCYTES ABSOLUTE AUTO 1.71 K/mm3 (0.84-5.20); LYMPHOCYTES PERCENT AUTO 29 % (21-46); MONOCYTES ABSOLUTE AUTO 0.62 K/mm3 (0.16-1.47); MONOCYTES PERCENT AUTO 11 % (4-13); Mean Corpuscular HGB 27.7 pg (26.0-34.0); Mean Corpuscular HGB Conc 30.4 g/dL (31.5-36.5); Mean Corpuscular Volume 91 fL (80-100); Mean Platelet Volume 9.9 fL (9.1-12.4); NEUTROPHILS ABSOLUTE AUTO 3.24 K/mm3 (1.96-9.15); NEUTROPHILS PERCENT AUTO 56 % (41-73); Platelet Count 266 K/mm3 (150-400); RDW Coefficient Variation 14.1 % (11.7-14.2); RDW Standard Deviation 45.7 fL (35.1-46.3); Red Blood Cell Count 3.14 M/mm3 (3.80-5.20); White Blood Cell Count 5.81 K/mm3 (4.00-11.30)
[2019-07-20 05:37] LABS: Albumin, Blood 2.9 g/dL (3.4-5.0); Anion Gap 5 mmol/L (6-16); Blood Urea Nitrogen 6 mg/dL (8-24); Bun/Creatinine Ratio 10.6 (12.0-20.0); CO2, Blood 33 mmol/L (21-32); Calcium, Blood 8.6 mg/dL (8.5-10.1); Chloride, Blood 103 mmol/L (98-108); Creatinine, Blood 0.57 mg/dL (0.40-1.00); Glomerular Filtration Rate >60 (60-); Glucose, Blood 96 mg/dL (70-99); Magnesium, Blood 2.3 mg/dL (1.6-2.4); Potassium, Blood 3.3 mmol/L (3.5-5.5); Sodium, Blood 141 mmol/L (136-145)
--- NOTE | 2019-07-20 06:24 | NUR ---
SHIFT SUMMARY: BHUPENDRA IS A&OX4. SHE RESTED FOR THE MAJORITY OF THE NIGHT. SHE CONTINUES TO PASS FLATUS AND A SMALL AMOUNT OF PEACH COLORED OUTPUT THROUGH HER STOMA, BUT DENIES ANY STOOL YET. SHE DID HAVE AN EPISODE OF ACUTE, INTENSE PAIN WHEN THE BP CUFF WAS APPLIED TO HER RIGHT ARM. SHE STATES THAT SHE HAS A "SPOT" ON HER RIGHT ELBOW THAT FEELS THOUGH IT HAS BEEN TORN. SHE STATES THAT CERTAIN MOVEMENTS CAUSE A "TEARING" SENSATION. SHE REPORTS ADEQUATE PAIN RELIEF WITH THE USE OF 2 NORCO AND A BENADRYL TO PREVENT ADVERSE REACTION FROM THE NORCO. SHE IS ABLE TO MAKE HER NEEDS KNOWN. SHE IS LOOKING FORWARD TO STARTING THE SPIRONOLACTONE TO AID IN THE REDUCITON OF HER BLE EDEMA. SHANNAN C/D&I, OSTOMY APPLIANCE WITHOUT SIGNS OF LEAKING. WILL REPORT TO DAY SHIFT RN.
--- NOTE | 2019-07-20 07:37 | NUR ---
pt wanting to do her meds for the edema in her legs did her other sched meds at this time also still no stool in ostomy pt also asked for additional help with her menu will notify dietary
--- NOTE | 2019-07-20 09:26 | NUR ---
ASSUMED CARE OF PATIENT. PT REPORTS PAIN TO RIGHT ARM AT AC AREA. PT STATES HAF BLOOD DRAWN FROM THIS AREA AND IS NOW EXPERIENCING SHARP SHOOTING PAINS WITH MOVEMENT. NO REDNESS, SWELLING OR FIRM AREAS NOTED. WILL DISCUSS WITH PHYSICIAN WHEN ROUNDING
--- NOTE | 2019-07-20 11:06 | NUR ---
PT REPORTS INCREASED ABD PAIN AFTER BEING UP IN ROOM, REQUESTS A SECOND SALLY DISCUSSSED WITH DR SERNA PTS REPORT OF PAIN TO RIGHT AC AREA, WILL OFFER PATIENT WARM COMPRESSES PER DR SERNA
--- NOTE | 2019-07-20 12:50 | NUR ---
PT CHANGED OWN OSTOMY APPLIANCE WITH MINIMAL VERBAL CUES NEEDED
--- NOTE | 2019-07-20 18:04 | NUR ---
SUMMARY PT MEDICATED FORPAIN AND NAUSE AND REPORTS ADEQUATE CONTROL OF BOTH. NO OSTOMY OUTPUT THOUGH PT REPORTS HAVING GAS PAINS. PT ABLE TO CHANGE OWN OSTOMY BAG WITH VERY FEW VERBAL CUES NEEDED
--- NOTE | 2019-07-20 23:05 | NUR ---
SHANNAN REPLACED WITH MEDIPORE AT THIS TIME WITH APPROVAL FROM DR. SHIN. OSTOMY APPLIANCE ALSO CHANGED AT THIS TIME.
--- NOTE | 2019-07-21 06:29 | NUR ---
SHIFT SUMMARY PT IS A/O X4 AND IND. IN ROOM. PT AMBULATES HALLS IND. AND HAS AMBULATED SEVERAL TIMES THROUGHOUT THE NIGHT. PT REPORTS PASSING A LOT OF FLATUS BUT HAS NOT HAD STOOL OUTPUT IN OSTOMY YET. OSTOMY APPLIANCE WAS CHANGED LAST NIGHT SEAL WAS NOT INTACT. MIDINE DRESSING ALSO CHANGED DURING THE SHIFT FROM SHANNAN TO MEDIPORE WITH THE APPROVAL OF DR. SHIN. PAIN IS MANAGED WITH PO PAIN MED NE ORDERS. PT REPORTS NO NAUSEA WITH PO INTAKE. NO ACUTE CHANGES. WCTM.
[2019-07-21] MEDS ORDERED: ACET325 PO (11:41)
[2019-07-21] MEDS ORDERED: HYDR1TAB94 PO (11:42)
[2019-07-21] MEDS ORDERED: MIRALAX17 GM PO (11:45)
--- NOTE | 2019-07-21 11:57 | NUR ---
PT HAD MEDIUM TO LARGE SIZED FIRM OUTPUT FROM OSTOMY. PLACED NEW APPLIANCE AND REVIEWED W/PT. PT INTERESTED IN LEARNING.
--- NOTE | 2019-07-21 14:31 | NUR ---
DISCHARGED OSTOMY STARTED PRODUCING THICK BROWN STOOL. CHANGED APPLIANCE W/PT. PT VERBALIZED UNDERSTANDING. PROVIDED OSTOMY SUPPLIES FOR PT TO GO HOME WITH. REVIEWED OSTOMY PAPERWORK; PT VERBALIZED UNDERSTANDING. DC'D IV, CATHETER INTACT. PT LEFT UNIT IN WC W/POSSESSIONS, DC PAPERWORK AND PRESCRIPTIONS, AND OSTOMY SUPPLIES IN HAND TO RIDE AWAITING OUTSIDE.
== END 2019-07-21 14:08 | disposition home or self-care (01) | DRG 329 ==
LOC: ER 19:42 → SURS 23:18 → PCU 07-14 19:57 → SURS 07-16 19:11
PROVIDERS: Internal Medicine; Internal Medicine Gastroenterology; Physician Assistant; Surgery; ADMIT Internal Medicine
PROC: 0D1N4Z4 Bypass Sigmoid Colon to Cutaneous, Percutaneous Endoscopic Approach (ICD-10-PCS; principal; 2019-07-14 15:00)
DX: K57.20 Diverticulitis of large intestine with perforation and abscess without bleeding (principal); K65.9 Peritonitis, unspecified; E78.5 Hyperlipidemia, unspecified; K21.9 Gastro-esophageal reflux disease without esophagitis; J45.909 Unspecified asthma, uncomplicated; G62.9 Polyneuropathy, unspecified
CPT/HCPCS: 36415; 74176; 80048; 80053; 80069; 81001; 83690; 83735; 85014; 85018; 85025; 86850; 86900; 86901; 86923; 88307; 93005; 93010; 94760; 94762; 96361; 96365; 96375; 99285-25; A9270; A9270-GY; C1751; J0295; J1100; J1170; J1650; J2001; J2250; J2370; J2405; J2543; J2704; J2710; J3010; J3480; J7030; J7050; J7120; P9016; Q0163

== ENCOUNTER 2020-02-05 13:54 | Inpatient (IN) | payer OTHER ==
[~2020-02-05] VITALS: Ht 160 cm; Wt 85.2 kg
[~2020-02-05 13:54] MED LIST changes: +ACET325 PO; +ALBU2.5V5 INH; +ALBU2.5V5 NEB; +ALBU90OI INH; +BENADRYL25 MG PO; +Biotin800 MCG PO; +COLLAGEN PO; +CRANBERRY500 M1 PO; +EPIPEN0.3 MG/0.1; +ETOD400 PO; +ETOD400CR PO; +FERROUS GLUCON324 M2 PO; +FLAXSEED OIL1000 M1 PO; +GABA800 PO; +HAIR, SKIN AND1 EAC3 PO; +HYDR1TAB94 PO; +MIRALAX17 GM PO; +MULVITA PO; +NIAC500 PO; +Nexium40 MG PO; +PROAIR RESPICL90 MCG INH; +Robaxin750 MG PO; +TRAZ50 PO; +TUMS500 MG PO; +VITAMIN A PO; +VITAMIN B-1000.4 MG PO; +VITAMIN D325 MC3 PO; +VITAMIN E PO; +Vitamin C100 M1 PO; +ZINC15 PO; +[UNRECOGNIZED DRUG - OTHER] PO; +[UNRECOGNIZED DRUG - OTHER] PO
--- NOTE | 2020-02-08 09:29 | NUR ---
Ambulatory in Day Surgery History, Chart, Medications and Allergies reviewed before start of procedure. Lungs clear T/O to Auscultation. Pre-Op teaching done. Pt verbalizes understanding.
--- NOTE | 2020-02-08 10:37 | NUR ---
02/08/[address] CLOSED OSTOMY PRIOR TO SURGERY BEGINING
--- NOTE | 2020-02-08 16:54 | NUR ---
DISCHARGE: PACKET PRINTED AND PT EDUCATED. LEFT UNIT VIA WHEELCHAIR WITH DANNIELLE JUNIOR AT ABOUT 1410
--- NOTE | 2020-02-08 16:57 | NUR ---
POST OP: REPORT RECEIVED FROM MARYCARMEN, FREELANCE WEB DESIGNER. PT TO UNIT AT ABOUT 1400. UPON ASSESSMENT PT IS ALERT, A BIT DROWSY. VSS, SURGICAL SITES WNL. PT COMPLAINING OF 10/10 PAIN, MEDICATED PER EMAR. PERCOCET GIVEN WELL TOTAL OF 100 MCG OF FENTANYAL, PT CONTINUES TO RATE PAIN 10/10 AND IS ORIENTED, CONTINUES TO BE SLIGHTY DROWSY, AWAKENS TO VOICE AND SAYS SHE IS IN PAIN. DR. PACHECO MADE AWARE, SEE NEW ORDERS.
--- NOTE | 2020-02-08 18:15 | NUR ---
SUMMARY: PT CONTINUES TO COMPLAIN OF 8-9/[address] FREIGHT FIRER SENT UP. ROAD FREIGHT FIRER NOW INFUSING AND PT GIVEN INSTUCTIONS ON BOLUS BUTTON, WILL CTM . PT VSS, PT CONTINUES TO BE DROWSY, BUT AWAKENS SAYING "IT HURTS" AND AWAKENS TO VOICE. SURGICAL SITES WNL. WILL PASS REPORT TO NOC RN
--- NOTE | 2020-02-09 04:28 | NUR ---
SHIFT SUMMARY POD#1. AAOX4. DISCOMFORT CONTROLLED WITH FENTANYL TECHNICAL STENOGRAPHER USE. DENIES NAUSEA/EMESIS. ABD INCISIONS WITH SHANNAN X2 C/D/I. PT ANXIOUS TO MOVE IN BED, DOES SO WITH ENCOURAGEMENT AT BEDSIDE. ABD SOFT/TENDER. SHALLOW BREATHING AT BASELINE PER PT, ENCOURAGE DEEP BREATHING + INCENTIVE SPIROMETRY USE. PT RESTED WELL THIS SHIFT. GOOD PO INTAKE + MINIMAL URINE OUTPUT THROUGH TINOCO. PT CURRENTLY SITTING UP IN BED WATCHING TV WITH CALL LIGHT IN REACH.
[2020-02-09 04:31] LABS: BASOPHILS ABSOLUTE AUTO 0.01 K/mm3 (0.00-0.23); BASOPHILS PERCENT AUTO 0 % (0-2); EOSINOPHILS PERCENT AUTO 0 % (0-6); Hematocrit 40.3 % (33.0-51.0); IMMATURE GRAN ABSOLUTE AUTO 0.02 K/mm3 (0.00-0.10); IMMATURE GRAN PERCENT AUTO 0 % (0-1); LYMPHOCYTES ABSOLUTE AUTO 1.31 K/mm3 (0.84-5.20); LYMPHOCYTES PERCENT AUTO 14 % (21-46); MONOCYTES PERCENT AUTO 10 % (4-13); Mean Corpuscular HGB 28.6 pg (26.0-34.0); Mean Corpuscular HGB Conc 32.3 g/dL (31.5-36.5); Mean Corpuscular Volume 89 fL (80-100); Mean Platelet Volume 9.9 fL (9.1-12.4); NEUTROPHILS ABSOLUTE AUTO 7.27 K/mm3 (1.96-9.15); NEUTROPHILS PERCENT AUTO 76 % (41-73); Platelet Count 248 K/mm3 (150-400); RDW Coefficient Variation 12.7 % (11.7-14.2); RDW Standard Deviation 41.6 fL (35.1-46.3); Red Blood Cell Count 4.54 M/mm3 (3.80-5.20); White Blood Cell Count 9.61 K/mm3 (4.00-11.30)
[2020-02-09 04:48] LABS: Anion Gap 6 mmol/L (6-16); Blood Urea Nitrogen 14 mg/dL (8-24); Bun/Creatinine Ratio 22.5 (12.0-20.0); CO2, Blood 29 mmol/L (21-32); Calcium, Blood 8.7 mg/dL (8.5-10.1); Chloride, Blood 104 mmol/L (98-108); Creatinine, Blood 0.62 mg/dL (0.40-1.00); Glomerular Filtration Rate >60 (60-); Glucose, Blood 120 mg/dL (70-99); Sodium, Blood 139 mmol/L (136-145)
--- NOTE | 2020-02-09 15:38 | NUR ---
SHIFT SUMMARY PT A&OX4, VSS/RA, POD1 COLOSTOMY CLOSURE/REVISION, MIDLINE/TRANSVERSE PICOS WNL, ABDOMINAL BINDER ON. PAIN MANAGED WITH CONSULTANT INTERNSHIP FENT, CONTINUOUS AND DEMAND. IVF LR @ 75 MLS/HR. TINOCO PATENT & DRAINING YELLOW URINE, STAT LOCK ON, OFF FLOOR. SBA TO CHAIR/BED, UP TO CHAIR FOR MEALS. TCDB & I.S. EDU & ENC, DEMONSTRATED BY PT T/O SHIFT. TINO PO FULL LIQUID DIET; TUMS FOR HEARTBURN X1. WILL REPORT TO NEXT RN.
--- NOTE | 2020-02-09 17:00 | NUR ---
THIS RN BEEN GIVEN REPORT AND IS ASSUMING CARE OF PT.
--- NOTE | 2020-02-10 04:30 | NUR ---
SHIFT SUMMARY POD#2. AAOX4. DISCOMFORT CONTROLLED WITH FENTANYL ENGINEER DESIGN AND CONSTRUCTION. DENIES NAUSEA/EMESIS. ABD INCISIONS WITH PICOX2 C/D/I. TOLERATING DIET WELL. TINOCO WITH LARGE AMOUNTS OF CLEAR YELLOW URINE WHICH IS TO BE DC'D LATER THIS AM UPON PT'S AWAKENING. PT RESTED WELL T/O NIGHT WITH CALL LIGHT IN REACH.
--- NOTE | 2020-02-10 09:30 | NUR ---
PT REPORTS FEELING OF HAVING TO VOID. TINOOC UNCLAMPED.
--- NOTE | 2020-02-10 10:58 | NUR ---
PT BEEN UP TO CHAIR. PT REQ TO HAVE ALEJANDRINA OHYT'Sakshi. FEMALE SEAM STAY STITCHER DC'ING ALEJANDRINA. LINEN CHANGED TO BED. PT GIVEN NEW BLANKET FOR CHAIR.
--- NOTE | 2020-02-10 13:33 | NUR ---
DR PACHECO HERE TO SEE PT. PT VOIDING AFTER HAVING TINOCO DC'D EARLIER. PT REPORTS PASSING GAS.
--- NOTE | 2020-02-10 14:53 | NUR ---
PT REPORTS READY TO JUST BE ON PAIN PILLS, REPORTS DOES NOT NEED ENROBER TENDER ANY LONGER.
--- NOTE | 2020-02-10 15:30 | NUR ---
SHIFT SUMMARY PT TOLERATING DIET, BEING ADVANCED TONIGHT FROM FULL LIQUID. PT REPORTS PASSING GAS. PT UP IND WITH STEADY GAIT. PT OFF IVF AND DIVISION LEADER. PT REPORTS PAIN DOING BETTER AT 2/10 AT THIS TIME. PT FAMILY/FRIEND TO SEE PT TODAY. PT BEEN ASSISTED WITH ADL'S PRN. PT HAD TINOCO DC'D TODAY EARLIER BY FEMALE CHARM FILTER OPERATOR HELPER, PT VOIDING WITHOUT DIFFICULTY.
--- NOTE | 2020-02-10 15:40 | NUR ---
OTHER KATHY Tran GIVEN REPORT AND IS ASSUMING CARE OF PT.
--- NOTE | 2020-02-10 15:54 | NUR ---
ASSUMED CARE OF PATIENT AT APROX 1554, PT APPEARS TO BE RESTING COMFORTABLY AT THIS TIME.
--- NOTE | 2020-02-11 05:18 | NUR ---
SHIFT SUMMARY POD#3. AAOX4. DISCOMFORT CONTROLLED WITH 2 PERCOCET Q4H. NO NAUSEA/EMESIS. SHANNAN DRESSINGS X2 TO ABD C/D/I. ABD SOFT/TENDER. PT REPORTING SMALL AMOUNTS OF FLATUS THIS SHIFT + SMALL SMEAR X2. INDEPENDENT IN ROOM. GOOD PO INTAKE + URINE OUTPUT. CONTINUE TO ENCOURAGE DEEP BREATHING + AMBULATION TOLERATED TODAY. PT RESTING WELL THIS AM WITH CALL LIGHT IN REACH.
--- NOTE | 2020-02-11 15:22 | NUR ---
REPORT GIVEN TO LULU Maldonado RN.
--- NOTE | 2020-02-11 16:18 | NUR ---
SHIFT SUMMARY: POD 3 OSTOMY REVERSAL THIS RN ASSUMED CARE AT 1300 FROM VITA RN. PATIENT IS ALERT AND ORIENTED X4. VS ARE WNL AND IS ON RA. PAIN IS CONTROLLED WITH 2 PERCOCET Q4H. SHE IS IND. IN THE ROOM. NO NAUSEA OR VOMITING. SHE HAS BEEN ABLE TO PASS A LOT OF GAS AND HAD A SMEAR OF A BM BUT NO FORMED ONE. SHE IS TINO PO INTAKE. SHE IS VOIDING WITH NO PROBLEMS. SHE IS WALKING TOLERATED. SHE IS LAYING IN BED WITH A GUEST AT THE BEDSIDE. CALL LIGHT WITHIN REACH. USES CALL LIGHT APPROPRIATELY. THE PLAN IS TO CONTINUE PAIN MANAGEMENT AND ENCOURAGE AMBULATION.
--- NOTE | 2020-02-12 04:14 | NUR ---
SHIFT SUMMARY: PT POD#4 FOR OSTOMY REVERSAL. SHANNAN DRESSINGS C/D/I AND COMPRESSED. PT PASSING FLATUS. TINO PO. DRINKING ADEQUATE AMOUNT OF FLUIDS AND VOIDING WELL. NO BM THIS SHIFT. PAIN BEING MANAGED WITH 2 PERC Q4 PER EMAR. PT INDEPENDENT IN ROOM. AMBULATING FREQUENTLY. POSSIBLE DISCHARGE HOME TODAY.
[2020-02-12] MEDS ORDERED: Percocet 5-3251 EACH PO (16:30)
--- NOTE | 2020-02-12 17:37 | NUR ---
DISCHARGE SUMMARY PT LEFT WITH DAUGHTER VIA WC. PIKA DRAINS INTACT AND WORKING WELL. DR PACHECO CAME TO BS PRIOR, GAVE PERCOCET SCRIPT (COPY IN CHART). PIV REMOVED, PAPERWORK GONE OVER WITH PT, AFTER CARE DISCUSSED WITH PT. DR PACHECO'S OFFICE TO CALL PT WITH F/U APPT. PT KNOWS TO REMOVE DRESSINGS THURSDAY 02/15
== END 2020-02-12 17:29 | disposition home or self-care (01) | DRG 331 ==
LOC: SURS 02-08 08:53 → PRE IP 02-08 10:00 → SURS 02-08 14:30
PROVIDERS: ADMIT Surgery
PROC: 0WQF0ZZ Repair Abdominal Wall, Open Approach (ICD-10-PCS; 2020-02-08)
PROC: 0DQM0ZZ Repair Descending Colon, Open Approach (ICD-10-PCS; principal; 2020-02-08 10:00)
DX: Z43.3 Encounter for attention to colostomy (principal); J45.909 Unspecified asthma, uncomplicated
CPT/HCPCS: 36415; 80048; 85025; 88305; 94760; A9270; J0295; J1100; J1650; J1885; J2250; J2270; J2370; J2405; J2704; J3010; J7120; V2790

== ENCOUNTER 2020-02-07 10:04 | Day surgery (SDC) | payer OTHER ==
[~2020-02-07] VITALS: Ht 160 cm; Wt 85.8 kg
--- NOTE | 2020-02-07 11:48 | NUR ---
Ambulatory in Day Surgery History, Chart, Medications and Allergies reviewed before start of procedure.Patient confirms NPO status and agrees with scheduled surgery. Patient states colon prep results clear.Lungs clear T/O to Auscultation. Patient States Post-Procedure ride home has been arranged WITH SISTER
--- NOTE | 2020-02-07 12:40 | NUR ---
02/07/20 1240 JordinBillie Christina History, Chart, Medications and Allergies reviewed before start of procedure.Patient confirms NPO status and agrees with scheduled surgery.3-LEAD EKG REVIEWED WITH PHYSICIAN PRIOR TO START OF PROCEDURE.MONITOR INTACT WITH CONTINUOUS PULSE OXIMETRY AND INTERMITTENT BP.O2 VIA N/C INTACT THROUGHOUT SEDATION/PROCEDURE. PATIENT DETERMINED TO BE ASA APPROPRIATE FOR PROPOFOL SEDATION PRIOR TO START OF PROCEDURE BY DR. PACHECO
--- NOTE | 2020-02-07 14:00 | NUR ---
Patient up to Ambulate independently. Gait steady. Discharge instructions reviewed with patient. Patient verbalizes understanding. Copy given to patient to take home. Discharged via wheelchair to private car for ride home. PATIENT TO RETURN FOR SURGERY TOMARR[place] AM. DENIES DIFFICULTY.
== END 2020-02-07 23:05 | disposition home or self-care (01) ==
LOC: ORSCMMR 10:04 → ORD 11:30 → ORSCMMR 11:30
PROVIDERS: Surgery
PROC: 0DJD8ZZ Inspection of Lower Intestinal Tract, Via Natural or Artificial Opening Endoscopic (ICD-10-PCS; principal; 2020-02-07 11:30)
DX: Z87.19 Personal history of other diseases of the digestive system (principal); Z93.3 Colostomy status; E78.5 Hyperlipidemia, unspecified; K21.9 Gastro-esophageal reflux disease without esophagitis; J45.909 Unspecified asthma, uncomplicated; I10 Essential (primary) hypertension; E66.9 Obesity, unspecified; Z68.33 Body mass index [BMI] 33.0-33.9, adult; Z79.899 Other long term (current) drug therapy
CPT/HCPCS: J2704; J7120